=== PATIENT | female | born 1965 | race Caucasian/White ===

== ENCOUNTER 2016-10-01 12:58 | Emergency (ER) | payer SELFPAY ==
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
[2016-10-01 14:47] VITALS: BP 102/52
== END 2016-10-01 14:49 | disposition home or self-care (01) ==
LOC: ER 12:58
DX: R05 Cough (principal); R50.9 Fever, unspecified; H92.09 Otalgia, unspecified ear; E78.00 Pure hypercholesterolemia, unspecified; I10 Essential (primary) hypertension; J44.9 Chronic obstructive pulmonary disease, unspecified; Z87.891 Personal history of nicotine dependence; Z88.6 Allergy status to analgesic agent; Z98.84 Bariatric surgery status; Z90.710 Acquired absence of both cervix and uterus
CPT/HCPCS: 71020; 87804; 99283

== ENCOUNTER 2016-11-22 16:20 | Emergency (ER) | payer SELFPAY ==
[2016-11-22 16:27] VITALS: BP 103/68
[2016-11-22] MEDS ORDERED: ACETAMINOPHEN 325 MG TABLET PO ONE (17:14)
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
[2016-11-22] MEDS ORDERED: HYDROCODONE/ACETAMINOPHEN 5-325 MG 6 TAB/DSPK PO PRN (21:14)
== END 2016-11-22 22:21 | disposition home or self-care (01) ==
LOC: ER 16:20
DX: S00.83XA Contusion of other part of head, initial encounter (principal); H57.12 Ocular pain, left eye; M79.674 Pain in right toe(s); W01.198A Fall on same level from slipping, tripping and stumbling with subsequent striking against other object, initial encounter; R55 Syncope and collapse; I10 Essential (primary) hypertension; J44.9 Chronic obstructive pulmonary disease, unspecified; Z98.84 Bariatric surgery status; Z88.5 Allergy status to narcotic agent; Z91.018 Allergy to other foods; Z87.891 Personal history of nicotine dependence
CPT/HCPCS: 70450; 70486; 99284

== ENCOUNTER 2016-11-26 14:40 | Emergency (ER) | payer SELFPAY ==
[2016-11-26 14:50] VITALS: BP 105/74
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
[2016-11-26] MEDS ORDERED: ACETAMINOPHEN 325 MG TABLET PO ONE (16:37)
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
== END 2016-11-26 20:48 | disposition home or self-care (01) ==
LOC: ER 14:40
DX: K08.9 Disorder of teeth and supporting structures, unspecified (principal); F17.200 Nicotine dependence, unspecified, uncomplicated; E78.00 Pure hypercholesterolemia, unspecified; I10 Essential (primary) hypertension; J44.9 Chronic obstructive pulmonary disease, unspecified; K21.9 Gastro-esophageal reflux disease without esophagitis; Z88.6 Allergy status to analgesic agent; Z98.84 Bariatric surgery status; Z90.49 Acquired absence of other specified parts of digestive tract; Z90.710 Acquired absence of both cervix and uterus
CPT/HCPCS: 99282

== ENCOUNTER 2016-12-26 11:41 | Outpatient (CLI) | payer SELFPAY ==
[~2016-12-26 11:41] MED LIST: FERRIC CARBOXYMALTOSE 750 MG in NORMAL SALINE 250 ML IV PRN; NORMAL SALINE 250 ML IV PRN
[2016-12-26 12:12] VITALS: BP 110/59
== END 2016-12-26 13:12 | disposition home or self-care (01) ==
LOC: II 11:41 → 5TH 11:43 → II 13:12
PROVIDERS: ATTEND Internal Medicine
PROC: 3E033GC Introduction of Other Therapeutic Substance into Peripheral Vein, Percutaneous Approach (ICD-10-PCS; principal; 2016-12-26)
DX: D50.8 Other iron deficiency anemias (principal)
CPT/HCPCS: 96365; 96367; J7050; J1439

== ENCOUNTER 2017-01-02 09:34 | Outpatient (CLI) | payer SELFPAY ==
[2017-01-02 10:31] VITALS: BP 145/66
== END 2017-01-02 10:57 | disposition home or self-care (01) ==
LOC: II 09:34 → 5TH 09:37 → II 10:57
PROVIDERS: ATTEND Internal Medicine
PROC: 3E033GC Introduction of Other Therapeutic Substance into Peripheral Vein, Percutaneous Approach (ICD-10-PCS; principal; 2017-01-02)
DX: D50.8 Other iron deficiency anemias (principal)
CPT/HCPCS: 96365; J7050; J1439

== ENCOUNTER → 2017-01-15 | Outpatient (CLI) | payer SELFPAY ==
[2017-01-15 10:05] LABS: APPEARANCE,URINE CLEAR; BILIRUBIN,URINE NEGATIVE (NEGATIVE); GLUCOSE, URINE NEGATIVE (NEGATIVE); KETONES,URINE NEGATIVE (NEGATIVE); LEUKOCYTE ESTERASE,URINE NEGATIVE (NEGATIVE); NITRITE,URINE NEGATIVE (NEGATIVE); PROTEIN,URINE NEGATIVE (NEGATIVE); URINE SPECIFIC GRAVITY 1.004; UROBILINOGEN,URINE NEGATIVE mg/dL (<2.0)
[2017-01-15 10:05] LABS: WHITE BLOOD COUNT 4.8 10^3/uL (4.0-10.5)
[2017-01-15 10:14] LABS: ALANINE AMINOTRANSFERASE 143 U/L (9-52); ALBUMIN 3.6 g/dL (3.5-5.0); ALKALINE PHOSPHATASE 109 U/L (38-126); ANION GAP 8 (5-19); ASPARTATE AMINO TRANSFERASE 112 U/L (14-36); BILIRUBIN,DIRECT 0.2 mg/dL (0.0-0.4); BILIRUBIN,TOTAL 0.4 mg/dL (0.2-1.3); BLOOD UREA NITROGEN 15 mg/dL (7-20); CALCIUM 8.8 mg/dL (8.4-10.2); CARBON DIOXIDE 28 mmol/L (22-30); CHLORIDE 105 mmol/L (98-107); CHOLESTEROL 168.12 mg/dL (0-200); CREATININE RESULT 0.76 mg/dL (0.52-1.25); Direct HDL 58 mg/dL (>40); GLUCOSE 86 mg/dL (75-110); POTASSIUM 4.2 mmol/L (3.6-5.0); SODIUM 141.1 mmol/L (137-145); TOTAL PROTEIN 6.5 g/dL (6.3-8.2); TRIGLYCERIDES 134 mg/dL (<150); URIC ACID 4.6 mg/dL (2.5-7.5)
[2017-01-15 10:25] LABS: DIRECT LDL 79 mg/dL (<100)
[2017-01-15 10:41] LABS: ERYTHROCYTE SEDIMENTATION RATE 14 mm/hr (0-30)
[2017-01-15 10:42] LABS: HEMATOCRIT 37.3 % (36.0-47.0); HEMOGLOBIN 11.9 g/dL (12.0-15.5); HGB HCT DIFFERENCE -1.6; MEAN CORPUSCULAR HEMOGLOBIN 25.4 pg (27.0-33.4); RED CELL DISTRIBUTION WIDTH 29.6 % (11.5-14.0)
[2017-01-15 10:44] LABS: MEAN CORPUSCULAR VOLUME 79 fl (80-97)
[2017-01-16 16:37] LABS: THYROXINE (T4) 5.9 ug/dL (4.5-12.0)
[2017-01-17 08:34] LABS: EPSTEIN BARR EARLY AG IGG AB <9.0 U/mL (0.0-8.9); LYME DISEASE IGG AND IGM AB <0.91 ISR (0.00-0.90); ROCKY MTN SPOTTED FEV IGG EIA Negative (Negative)
== END ==
LOC: LAB 09:25
PROVIDERS: ATTEND Physician Assistant Medical
DX: R52 Pain, unspecified (principal); M79.7 Fibromyalgia; R11.0 Nausea; Z13.1 Encounter for screening for diabetes mellitus; Z13.29 Encounter for screening for other suspected endocrine disorder; Z13.220 Encounter for screening for lipoid disorders; R53.83 Other fatigue
CPT/HCPCS: 36415; 80053; 80061; 81001; 82306; 83036; 84436; 84443; 84480; 84550; 85027; 85652; 86038; 86256; 86430; 86617; 86618; 86663; 86664; 86665; 86757

== ENCOUNTER 2018-05-20 19:11 | Emergency (ER) | payer MEDICAID ==
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
[2018-05-20] MEDS ORDERED: CEPHALEXIN 500 MG CAPSULE PO ONE (21:12)
[2018-05-20] MEDS ORDERED: KETOROLAC TROMETHAMINE INJ/PF 30 MG/1 ML SDV IM ONE (21:35)
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
[2018-05-20 23:16] VITALS: BP 103/72
== END 2018-05-20 23:16 | disposition home or self-care (01) ==
LOC: ER 19:11
DX: S91.331A Puncture wound without foreign body, right foot, initial encounter (principal); M79.671 Pain in right foot; W45.0XXA Nail entering through skin, initial encounter; M54.9 Dorsalgia, unspecified; W19.XXXA Unspecified fall, initial encounter; G89.29 Other chronic pain; I10 Essential (primary) hypertension; J44.9 Chronic obstructive pulmonary disease, unspecified; Z98.84 Bariatric surgery status; Z91.018 Allergy to other foods; Z88.5 Allergy status to narcotic agent; Z87.891 Personal history of nicotine dependence; Z65.5 Exposure to disaster, war and other hostilities
CPT/HCPCS: 99283; 96372; 73630; J1885